=== PATIENT | male | born 1975 | race Caucasian/White ===

== ENCOUNTER 2019-09-01 15:13 | Emergency (ER) | payer OTHER ==
[2019-09-01 15:23] VITALS: RESP 18; TEMP 97.5
--- NOTE | 2019-09-01 15:49 | ED ---
Lower Extremity Injury HPI - General Chief Complaint: Extremity Injury, Lower Stated Complaint: [facility] - rt ankle injury Time Seen by Provider: 09/01/19 15:34 Source: patient Mode of arrival: wheelchair Limitations: no limitations - History of Present Illness Initial Comments: Patient is a 43-year-old male presenting to the emergency department complaints of right ankle pain that happened at work today. Patient states he was kicking some plywood at work when he slipped and his foot hit concrete a few inches below where he was standing. The patient states he has some difficulty and pain with walking. Patient denies any previous trauma or surgeries to the ankle. Patient denies any fever or chills. No other complaints at this time. Upon arrival to ER, vital signs are stable. - Related Data Allergies Allergy/AdvReac Type Severity Reaction Status Date / Time No Known Allergies Allergy Verified 09/01/19 15:23 Review of Systems ROS Statement: Those systems with pertinent positive or pertinent negative responses have been documented in the HPI. ROS Other: All systems not noted in ROS Statement are negative. Past Medical History Past Medical History: No Reported History History of Any Multi-Drug Resistant Organisms: None Reported Additional Past Surgical History / Comment(s): vasectomy Past Psychological History: No Psychological Hx Reported Smoking Status: Current every day smoker Past Alcohol Use History: Rare Past Drug Use History: None Reported General Exam - General Exam Comments Initial Comments: GENERAL: Well-appearing, well-nourished and in no acute distress. HEAD: Atraumatic, normocephalic. EYES: Pupils equal round and reactive to light, extraocular movements intact, sclera anicteric, conjunctiva are normal. NECK: Normal range of motion, supple without lymphadenopathy or JVD. LUNGS: Breath sounds clear to auscultation bilaterally and equal. No wheezes rales or rhonchi. HEART: Regular rate and rhythm without murmurs, rubs or gallops. ABDOMEN: Soft, nontender, normoactive bowel sounds. No guarding, no rebound. No masses appreciated. : Deferred EXTREMITIES: Pain with palpation of the right lateral malleolus and calcaneus. There is some mild swelling present. Neurovascular intact. Normal range of motion although painful at the end range. NEUROLOGICAL: Cranial nerves II through XII grossly intact. Normal speech. PSYCH: Normal mood, normal affect. SKIN: Warm, Dry, normal turgor, no rashes or lesions noted. Limitations: no limitations Course Vital Signs 09/01/19 09/01/19 15:17 17:05 Temperature 97.5 F L Pulse Rate 73 86 Respiratory 18 18 Rate Blood Pressure 93/58 143/87 O2 Sat by Pulse 97 Oximetry Medical Decision Making - Medical Decision Making Patient is a 43-year-old male presenting with pain in his right ankle happened prior to arrival at work. X-rays the right ankle show an acute comminuted,, mildly diastatic right calcaneal fracture. Patient was placed in a short leg splint and will follow up with orthopedics. Patient will take Tylenol and alternate with Motrin for pain relief. Patient is in agreement with this plan of care. Patient will remain nonweightbearing. Patient is stable for discharge at this time. Return parameters were discussed with the patient he verbalizes understanding. Case discussed with Dr. [place]. Disposition Clinical Impression: Closed right calcaneal fracture Disposition: HOME SELF-CARE Condition: Stable Instructions (If sedation given, give patient instructions): Calcaneal Fracture (ED) Additional Instructions: Please return to the Emergency Department if symptoms worsen or any other concerns. Nonweightbearing on right lower extremity. Follow-up with orthopedics as discussed. Alternate between Tylenol and Motrin for pain relief. Is patient prescribed a controlled substance at d/c from ED?: No Referrals: Nonstaff,Physician [REFERRING] - 1-2 days Andi Corbin MD [STAFF PHYSICIAN] - 1-2 days
--- NOTE | 2019-09-01 15:55 | XR ---
EXAMINATION TYPE: XR ankle complete RT DATE OF EXAM: 09/01/2019 CLINICAL HISTORY: Right ankle pain after injury TECHNIQUE: Frontal, lateral and oblique images of the right ankle are obtained. COMPARISON: None. FINDINGS: There is an acute comminuted, primarily vertically oriented fracture of the calcaneus with 6 mm diastases of the cranial aspect of the fracture site. Surrounding soft tissue swelling is seen i n the hindfoot. Small Achilles enthesophyte is noted. IMPRESSION: Acute comminuted, mildly diastatic right calcaneal fracture.
[2019-09-01 17:06] VITALS: BP 143/87; PULSE 86
== END 2019-09-01 17:15 | disposition home or self-care (01) ==
LOC: EC 15:13 → SUPCPDRO 15:13 → EC 17:15
DX: S92.001A Unspecified fracture of right calcaneus, initial encounter for closed fracture (principal); F17.200 Nicotine dependence, unspecified, uncomplicated; W01.0XXA Fall on same level from slipping, tripping and stumbling without subsequent striking against object, initial encounter; Y92.69 Other specified industrial and construction area as the place of occurrence of the external cause; Y99.0 Civilian activity done for income or pay
CPT/HCPCS: 29515; 99283